=== PATIENT | male | born 1985 | race African-American/Black ===

== ENCOUNTER 2023-03-09 10:46 | Emergency (ER) | payer OTHER ==
[~2023-03-09] VITALS: Ht 175.3 cm; Wt 91.5 kg
[2023-03-09] MEDS ORDERED: IBUP-1426 PO (11:06)
[2023-03-09] MEDS ORDERED: AMOX875T PO (11:06)
[2023-03-09] MEDS ORDERED: KETOROLAC 60MG 2ML VIAL IM ONE (13:20)
[2023-03-09] MEDS ORDERED: KETOROLAC 30 MG/ML 1ML VIAL IV ONE (13:30)
[2023-03-09 13:58] LABS: BASO % 0.3 % (0.0-1.0); EOS # 0.1 10^3/uL (0.0-0.5); EOS % 0.8 % (0.0-3.0); HEMATOCRIT 47.8 % (42.0-52.0); HEMOGLOBIN 15.8 g/dl (13.5-17.5); LYMPH # 1.2 10^3/uL (1.5-5.0); LYMPH % 16.6 % (24.0-44.0); MEAN CORPUSCULAR HEMOGLOBIN 27.6 pg (27.0-33.0); MEAN CORPUSCULAR HGB CONC 33.1 g/dl (32.0-36.5); MEAN CORPUSCULAR VOLUME 83.6 fl (80.0-96.0); MONO # 0.4 10^3/uL (0.0-0.8); MONO % 5.1 % (2.0-8.0); NEUTROPHILS # 5.6 10^3/uL (1.5-8.5); NEUTROPHILS % 77.1 % (36.0-66.0); PLATELET COUNT, AUTOMATED 242 10^3/uL (150-450); RED BLOOD COUNT 5.72 10^6/uL (4.30-6.10); WHITE BLOOD COUNT 7.3 10^3/uL (4.0-10.0)
[2023-03-09] MEDS ORDERED: ISOVUE-370 76% 100ML VIAL As Ordered ONE (14:14)
[2023-03-09] MEDS ORDERED: ACET325C5 PO (16:11)
[2023-03-09] MEDS ORDERED: IBUP80TA PO (16:11)
[2023-03-09] MEDS ORDERED: ACET-716 PO (16:11)
[2023-03-09 16:27] VITALS: BP 150/89; TEMP 97.3; O2SAT 98
[2023-03-10] MEDS ORDERED: PRED10TA2 PO (03:46)
== END 2023-03-09 16:28 | disposition home or self-care (01) ==
LOC: M ED 10:46
DX: K04.7 Periapical abscess without sinus (principal); Z79.52 Long term (current) use of systemic steroids; Z79.1 Long term (current) use of non-steroidal anti-inflammatories (NSAID); Z79.899 Other long term (current) drug therapy

== ENCOUNTER 2023-03-09 22:10 | Emergency (ER) | payer OTHER ==
[~2023-03-09] VITALS: Ht 175.3 cm; Wt 97.6 kg
[~2023-03-09 22:10] MED LIST: ACET-716 PO; ACET325C5 PO; AMOX875T PO; IBUP-1426 PO; IBUP80TA PO
[2023-03-09] MEDS ORDERED: NS 1,000 ML IV ONE (22:50)
[2023-03-09] MEDS ORDERED: ISOVUE-370 76% 100ML VIAL As Ordered ONE (23:00)
[2023-03-09] MEDS ORDERED: ACETAMINOPHEN TAB 650MG DOSE (2X325MG) PO ONE (23:05)
[2023-03-09 23:16] LABS: BASO % 0.4 % (0.0-1.0); EOS # 0.1 10^3/uL (0.0-0.5); EOS % 0.7 % (0.0-3.0); HEMATOCRIT 43.6 % (42.0-52.0); HEMOGLOBIN 14.9 g/dl (13.5-17.5); LYMPH # 1.6 10^3/uL (1.5-5.0); LYMPH % 16.7 % (24.0-44.0); MEAN CORPUSCULAR HEMOGLOBIN 28.3 pg (27.0-33.0); MEAN CORPUSCULAR HGB CONC 34.2 g/dl (32.0-36.5); MEAN CORPUSCULAR VOLUME 82.7 fl (80.0-96.0); MONO # 0.6 10^3/uL (0.0-0.8); MONO % 6.4 % (2.0-8.0); NEUTROPHILS # 7.1 10^3/uL (1.5-8.5); NEUTROPHILS % 75.6 % (36.0-66.0); PLATELET COUNT, AUTOMATED 197 10^3/uL (150-450); RED BLOOD COUNT 5.27 10^6/uL (4.30-6.10); WHITE BLOOD COUNT 9.4 10^3/uL (4.0-10.0)
[2023-03-09 23:25] VITALS: BP 191/107; TEMP 101.1; O2SAT 98
[2023-03-10 00:23] LABS: INR 1.2; PROTHROMBIN TIME 14.9 SECONDS (12.5-14.5)
[2023-03-10 00:24] LABS: PARTIAL THROMBOPLASTIN TIME 29.6 SECONDS (24.8-34.2)
[2023-03-10 00:27] LABS: BLOOD UREA NITROGEN 13 MG/DL (9-23); CALCIUM LEVEL 9.5 MG/DL (8.5-10.1); CARBON DIOXIDE LEVEL 25 MMOL/L (20-31); CHLORIDE LEVEL 105 MMOL/L (98-107); CK-MB VALUE MASS < 1.0 NG/ML (<3.6); CREATININE FOR GFR 1.12 MG/DL (0.70-1.30); GLOMERULAR FILTRATION RATE > 60.0 (>60); GLUCOSE, FASTING 77 MG/DL (60-100); POTASSIUM SERUM 4.6 MMOL/L (3.5-5.1); SODIUM LEVEL 140 MMOL/L (136-145)
[2023-03-10 00:54] LABS: CPK CREATINE PHOSPHOKINASE 125 U/L (46-171)
[2023-03-10] MEDS ORDERED: methylPREDNISolone 125MG 2ML VIAL IV ONE (01:10)
[2023-03-10] MEDS ORDERED: METOCLOPRAMIDE INJ 10MG/2ML VIAL IV ONE (01:50)
[2023-03-10] MEDS ORDERED: NS 1,000 ML IV ONE (01:50)
[2023-03-10] MEDS ORDERED: KETOROLAC 30 MG/ML 1ML VIAL IM ONE (02:00)
[2023-03-10 03:15] VITALS: O2SAT 97
[2023-03-10 03:22] VITALS: BP 111/73
[2023-03-10 03:27] VITALS: TEMP 100.1
[2023-03-10] MEDS ORDERED: PRED10TA2 PO (03:46)
== END 2023-03-10 04:40 | disposition home or self-care (01) ==
LOC: EDBD 22:10 → M ED 22:10
DX: R51.9 Headache, unspecified (principal); G54.0 Brachial plexus disorders; K04.7 Periapical abscess without sinus; Z79.52 Long term (current) use of systemic steroids; Z79.1 Long term (current) use of non-steroidal anti-inflammatories (NSAID); Z79.899 Other long term (current) drug therapy; Z79.2 Long term (current) use of antibiotics
CPT/HCPCS: 70450; 70487; 70496; 70498; 71260; 73030; 73200; 80047; 80048; 82550; 82553; 84484; 85025; 85610; 85730; 87486; 87581; 87633; 87798; 93005; 93041; 94760; 96361; 96372; 96374; 96375; 99284; 99285; J1885; J2765; J2930; Q9967

== ENCOUNTER → 2024-08-24 | Outpatient (REF) | payer OTHER ==
[~2024-08-24] MED LIST changes: +PRED10TA2 PO
[2024-08-24 18:28] LABS: HEMATOCRIT 49.4 % (42.0-52.0); HEMOGLOBIN 16.3 g/dl (13.5-17.5); MEAN CORPUSCULAR VOLUME 84.9 fl (80.0-96.0); PLATELET COUNT, AUTOMATED 207 10^3/uL (150-450); RED BLOOD COUNT 5.82 10^6/uL (4.30-6.10); WHITE BLOOD COUNT 4.8 10^3/uL (4.0-10.0)
[2024-08-24 18:41] LABS: HEMOGLOBIN A1c 5.7 % (4.0-6.0)
== END ==
LOC: M LAB REF 17:12
PROVIDERS: ATTEND Student in an Organized Health Care Education/Training Program
DX: F41.8 Other specified anxiety disorders (principal); R07.89 Other chest pain; R53.83 Other fatigue; Z68.30 Body mass index [BMI] 30.0-30.9, adult